=== PATIENT | female | born 1990 | race Caucasian/White ===

== ENCOUNTER 2019-02-07 13:52 | Outpatient (CLI) | payer BC ==
[~2019-02-07] VITALS: Ht 170.2 cm; Wt 63.0 kg
[~2019-02-07 13:52] MED LIST: ACHYD1T PO; CIPR500T78 PO; DCS100C PO; HYDR-3720 PO; HYDR1TAB75 PO; IBP800T PO; Ibuprofen PO; METR500T PO; MULT-608 PO; PREN1TAB39 PO
[2019-02-07 14:00] VITALS: BP 112/68
[2019-02-07] MEDS ORDERED: MULT-141 PO (14:03)
[2019-02-07 14:31] LABS: BASOPHILS % (AUTO) 1 % (0-10); EOSINOPHILS # (AUTO) 0.1 10^3/uL (0.0-0.3); EOSINOPHILS % (AUTO) 3 % (0-10); HEMATOCRIT 35 % (35-52); HEMOGLOBIN 11.6 G/DL (11.5-16.0); LYMPHOCYTES # (AUTO) 1.8 X 10^3 (1.0-4.0); LYMPHOCYTES % (AUTO) 35 % (12-44); MEAN CORPUSCULAR HEMOGLOBIN 29 PG (25-34); MEAN CORPUSCULAR HGB CONC 33 G/DL (32-36); MEAN CORPUSCULAR VOLUME 87 FL (80-99); MEAN PLATELET VOLUME 10.1 FL (7.4-10.4); MONOCYTES # (AUTO) 0.4 X 10^3 (0.0-1.0); MONOCYTES % (AUTO) 7 % (0-12); NEUTROPHILS # (AUTO) 2.8 X 10^3 (1.8-7.8); NEUTROPHILS % (AUTO) 54 % (42-75); PLATELET COUNT 306 10^3/uL (130-400); RED CELL DISTRIBUTION WIDTH 14.9 % (10.0-14.5); WHITE BLOOD COUNT 5.1 10^3/uL (4.3-11.0)
== END 2019-02-07 14:17 | disposition home or self-care (01) ==
LOC: PREOP 13:52
PROVIDERS: ATTEND Obstetrics & Gynecology
DX: Z01.812 Encounter for preprocedural laboratory examination (principal); Z11.2 Encounter for screening for other bacterial diseases; N81.4 Uterovaginal prolapse, unspecified; N92.0 Excessive and frequent menstruation with regular cycle; D64.9 Anemia, unspecified
CPT/HCPCS: 36415; 85025; 86850; 86900; 86901; 87081

== ENCOUNTER 2019-02-14 10:56 | Day surgery (SDC) | payer BC ==
[~2019-02-14] VITALS: Ht 170.2 cm; Wt 63.0 kg
--- NOTE | 2019-02-14 08:18 | Progress Note-Pre Operative ---
Pre-Operative Progress Note H&P Reviewed The H&P was reviewed, patient examined and no changes noted. Date Seen by Provider: Feb 14, 2019 Time Seen by Provider: 12:34 Date H&P Reviewed: Feb 14, 2019 Time H&P Reviewed: 12:34 Pre-Operative Diagnosis: DUB/Menorrhagia YANDY DEAN MD Feb 14, 2019 08:18
--- NOTE | 2019-02-14 08:19 | Progress Note-Post Operative ---
Post-Operative Progess Note Surgeon (s)/Atm Manager (s) Surgeon YANDY DEAN MD Atm Manager: Juve Pre-Operative Diagnosis DUB/Menorrhagia Post-Operative Diagnosis same with pelvic adhesions and with pathology pending Procedure & Operative Findings Date of Procedure 02/14/19 Procedure Performed/Findings TLH with Bilat Salpingectomy and adhesiolysis Anesthesia Type GETA Estimated Blood Loss Estimated blood loss (mL): Minimal Specimens/Packing Specimens Removed Uterus and tubes YANDY DEAN MD Feb 14, 2019 08:19
--- NOTE | 2019-02-14 08:23 | Discharge Instructions ---
Discharge Instructions Patient Instructions Patient Instructions: as directed Return to The Hospital For: as directed Activity & Diet Discharge Diet: No Restrictions Activity as Tolerated: No Orders-Post D/C & Referrals Follow Up Appt: RTC on Saturday February 16, 2019 at 9:30 AM for staple removal Call to make follow up appt. for patient in 4 weeks. Activity: Rest for 24 hours, than as tolerated. Wound Care: May remove Band-Aid tomorrow. Replace as desired. Keep incisions clean and dry. Wash daily with soap and water. Please call in RX to patient pharmacy. Diet: As tolerated-Clear Liquids only if nauseated. shower or tub bathe as desired. No driving for 24 hours, no alcoholic beverages for 24 hours, and nothing per vagina (no tampons, douching, or intercourse) for 8 weeks. Patient to return to the clinic as soon as possible for: Temperature greater than 101F, Severe Pain, Foul discharge from incision or vagina, Excessive Bleeding (more than a period). YANDY DEAN MD Feb 14, 2019 08:23
[2019-02-14 10:55] VITALS: BP 111/75
[~2019-02-14 10:56] MED LIST changes: +DOCU-143 PO; +IBUP-1780 PO; +MULT-141 PO; +OXYC1TAB87 PO
--- OUTSIDE RECORDS SUMMARY | 2019-02-14 10:58 | XMS REPORT | Continuity of Care Document ---
Author Organization Unknown Address Unknown Allergies Active Description Code Type Severity Reaction Onset Reported/Identified Relationship to Patient Clinical Status Yes No Known Drug Allergies [id number] Drug Allergy Unknown N/A 10/10/2009 Medications There is no data. Problems Date Dx Coded Attending Type Code Diagnosis Diagnosed By 02/09/2019 YANDY DEAN MD, Ot D64.9 ANEMIA, UNSPECIFIED 02/09/2019 YANDY DEAN MD, Ot N81.4 UTEROVAGINAL PROLAPSE, UNSPECIFIED 02/09/2019 YANDY DEAN MD Ot N92.0 EXCESSIVE AND FREQUENT MENSTRUATION WITH 02/09/2019 YANDY DEAN MD Ot Z01.812 ENCOUNTER FOR PREPROCEDURAL LABORATORY E 02/09/2019 YANDY DEAN MD Ot Z11.2 ENCOUNTER FOR SCREENING FOR OTHER BACTER 02/13/2019 YANDY DEAN MD, Ot D64.9 ANEMIA, UNSPECIFIED 02/13/2019 YANDY DEAN MD, Ot N81.4 UTEROVAGINAL PROLAPSE, UNSPECIFIED 02/13/2019 YANDY DEAN MD Ot N92.0 EXCESSIVE AND FREQUENT MENSTRUATION WITH 02/13/2019 YANDY DEAN MD Ot Z01.812 ENCOUNTER FOR PREPROCEDURAL LABORATORY E 02/13/2019 YANDY DEAN MD Ot Z11.2 ENCOUNTER FOR SCREENING FOR OTHER BACTER Procedures There is no data. Results Test Result Range Methicillin resistant Staphylococcus aureus (MRSA) screening culture - 14:11 Methicillin resistant Staphylococcus aureus (MRSA) screening culture NEG NRG Complete blood count (CBC) with automated white blood cell (WBC) differential - 02/07/19 14:14 Blood leukocytes automated count (number/volume) 5.1 10*3/uL 4.3-11.0 Blood erythrocytes automated count (number/volume) 4.03 10*6/uL 4.35-5.85 Venous blood hemoglobin measurement (mass/volume) 11.6 g/dL 11.5-16.0 Blood hematocrit (volume fraction) 35 % 35-52 Automated erythrocyte mean corpuscular volume 87 [foz_us] 80-99 Automated erythrocyte mean corpuscular hemoglobin (mass per erythrocyte) 29 pg 25-34 Automated erythrocyte mean corpuscular hemoglobin concentration measurement ( mass/volume) 33 g/dL 32-36 Automated erythrocyte distribution width ratio 14.9 % 10.0-14.5 Automated blood platelet count (count/volume) 306 10*3/uL 130-400 Automated blood platelet mean volume measurement 10.1 [foz_us] 7.4-10.4 Automated blood neutrophils/100 leukocytes 54 % 42-75 Automated blood lymphocytes/100 leukocytes 35 % 12-44 Blood monocytes/100 leukocytes 7 % 0-12 Automated blood eosinophils/100 leukocytes 3 % 0-10 Automated blood basophils/100 leukocytes 1 % 0-10 Blood neutrophils automated count (number/volume) 2.8 10*3 1.8-7.8 Blood lymphocytes automated count (number/volume) 1.8 10*3 1.0-4.0 Blood monocytes automated count (number/volume) 0.4 10*3 0.0-1.0 Automated eosinophil count 0.1 10*3/uL 0.0-0.3 Automated blood basophil count (count/volume) 0.0 10*3/uL 0.0-0.1 Blood type T Indirect antibody screen panel - 02/07/19 14:14 ABO+Rh group OP NRG Blood group antibody screen NEGATIVE NRG Encounters ACCT No. Visit Date/Time Discharge Status Pt. Type Provider Facility Loc./Unit Complaint [id number] 02/07/2019 13:52:00 02/07/2019 14:17:00 DIS Outpatient JERMAINE SAVAGE, YANDY [facility] PREOP ROBOTIC HYSTERECTOMY WITH BILATERAL SALPINGECTOMY [id number] 07/07/2014 12:30:00 07/07/2014 22:55:00 DIS Outpatient [id number] 07/04/2014 08:23:00 07/04/2014 23:59:59 CLS Outpatient [id number] 02/14/2019 10:56:00 ACT Outpatient JERMAINE SAVAGE, YANDY [facility] DYFUNCTIONAL UTERINE BLEEDING
[2019-02-14] MEDS ORDERED: ceFAZolin INJECTION 1,000 MG in WATER (STERILE) FOR INJECTION 10 ML IV ONE (11:15)
[2019-02-14] MEDS ORDERED: proPOfol 200 MG/20 ML (DIPRIVAN) VIAL IV ONE (11:23)
[2019-02-14] MEDS ORDERED: ONDANSETRON 4 MG/2 ML (SDV) Z0FRAN ONE (11:23)
[2019-02-14] MEDS ORDERED: ROCURONIUM 10 MG/ML 5 ML SYRINGE IV ONE (11:23)
[2019-02-14] MEDS ORDERED: MIDAZOLAM 2 MG/2 ML (VERSED) VIAL ONE (11:23)
[2019-02-14] MEDS ORDERED: SEVOFLURANE (ULTANE) 15 ML INHAL SOLN ONE ×2 (11:23→13:54)
[2019-02-14] MEDS ORDERED: LIDOCAINE PF 2% 5 ML (XYLOCAINE) VIAL ONE (11:23)
[2019-02-14] MEDS ORDERED: DEXAMETHASONE 10 MG/ML (DECADRON) 1 ML VIAL ONE (11:23)
[2019-02-14] MEDS ORDERED: fentaNYL INJECTION 100 MCG/2 ML AMP ONE (11:23)
[2019-02-14] MEDS ORDERED: CATHETER FLUSH 10 ML SYR IV PRN (11:30)
[2019-02-14] MEDS: LACTATED RINGERS 1,000 ML IV PRN ×2 (11:45→13:25)
[2019-02-14] MEDS ORDERED: BUP/EPI 0.5% 1:200,000 (SENSORCAINE) 30 ML VIAL ONE (11:49)
[2019-02-14] MEDS ORDERED: GLYCOPYRROLATE 0.2 MG/ML (ROBINUL) 2 ML VIAL ONE (13:54)
[2019-02-14] MEDS ORDERED: LACTATED RINGERS 1,000 ML IV ONE (13:54)
[2019-02-14] MEDS ORDERED: NEOSTIGMINE 1 MG/ML 5 ML SYRINGE ONE (13:54)
[2019-02-14] MEDS ORDERED: ONDANSETRON 4 MG/2 ML (SDV) Z0FRAN IVP PRN ×2 (14:00→14:15)
[2019-02-14] MEDS ORDERED: KETOROLAC 30 MG/ML VIAL ONE (14:00)
[2019-02-14] MEDS: KETOROLAC 30 MG/ML VIAL IVP SCH ×2 (14:00→20:03)
[2019-02-14] MEDS ORDERED: MEPERIDINE (DEMEROL) INJ 100 MG/ML IM PRN (14:00)
[2019-02-14] MEDS ORDERED: PROMETHAZINE INJ 25 MG/ML (PHENERGAN) AMP IM PRN (14:00)
[2019-02-14] MEDS ORDERED: WATER (STERILE) FOR INJ 10 ML BTL INJ ONE (14:00)
[2019-02-14] MEDS ORDERED: HYDROmorphone 2 MG/ML VIAL (DILAUDID) IV ONE (14:15)
[2019-02-14] MEDS ORDERED: morphine INJ 10 MG/ML 1ML (SYR OR VIAL) IVP ONE (14:15)
[2019-02-14] MEDS ORDERED: morphine INJ 10 MG/ML 1ML (SYR OR VIAL) ONE (14:18)
--- NOTE | 2019-02-14 15:00 | NUR ---
Pt transferred to room 306 via bed with PACU staff @ side. pt resting with eyes closed. opens eyes when called by name. report received from Angelique Valdez RN. care assumed of pt.
[2019-02-14 15:07] VITALS: BP 117/60
--- NOTE | 2019-02-14 15:07 | NUR ---
initial shift assessment completed. HRR. lungs cta bilat with unlabored respirations noted. BS +x4. abd lapsites x3 noted, D/I. holt catheter to DD with clear, yellow urine noted. v-pad in place. SCD's to LE's. IV site patent to Rt.FA. IV tubing changed. call light within reach. and sister @ side.
[2019-02-14] MEDS: D5 LR IV SOLUTION 1,000 ML IV SCH ×2 (16:02→21:10)
--- NOTE | 2019-02-14 17:34 | NUR ---
called to check on pt. update given on status. no new orders received .
--- NOTE | 2019-02-14 18:19 | NUR ---
was called r/t decreased urine output. order received to increased IVF's to 250cc/hr x4 hours.
--- NOTE | 2019-02-14 18:32 | NUR ---
RT notified of IS order.
--- NOTE | 2019-02-14 19:30 | NUR ---
report given to next shift.
[2019-02-14 20:03] VITALS: BP 121/68
[2019-02-14] MEDS: oxyCODONE/APAP 5/325MG (PERCOCET 5) TABLET PO PRN ×2 (20:19→21:11)
[2019-02-15 00:27] VITALS: BP 94/48
--- NOTE | 2019-02-15 01:53 | OPERATIVE REPORT ---
DATE OF SERVICE: 02/14/2019 PREOPERATIVE DIAGNOSES: Dysfunctional uterine bleeding, menorrhagia, not controlled with hormones. POSTOPERATIVE DIAGNOSES: Dysfunctional uterine bleeding, menorrhagia, not controlled with hormones with likely endometriosis as well as cervical polyp. OPERATIVE PROCEDURE: Total laparoscopic hysterectomy with left salpingectomy. OPERATIVE DESCRIPTION: With the patient in the supine position under satisfactory general anesthesia, she was repositioned in the dorsal lithotomy position in the [facility] and prepped and draped in usual fashion for abdominal and vaginal surgery. Urinary bladder was drained via Resendiz catheter to dependent drainage. Weighted speculum placed in posterior fornix of vagina, cervix exposed and grasped anteriorly with single tooth tenaculum. Uterus was sounded to 9.5 cm with uterine sound. The cervix was then serially dilated with Fenrando dilators to accommodate a Christine II manipulator, which was placed with a 6 mm x 8 cm uterine probe and a 30 mm colpotomy ring. It was noted that there was a 6 mm polyp prolapsed through the cervical os. Sutures of #1 Vicryl were placed at 3 and 9 o'clock position of the cervix to affix the uterus to the manipulator. Bulb was filled with 8 mL of water. The tenaculum and speculum were removed. The patient brought in low dorsal lithotomy position. A 12 mm incision was made 3 cm superior to the umbilicus. Veress needle was placed through that incision into the abdominal cavity and correct placement confirmed with water drop test. The abdomen was insufflated to 2.4 liters of carbon dioxide and the Veress needle was removed and a 12 mm Optiview laparoscopic port placed under direct vision. The abdominal wall was transilluminated and 8 mm ports were placed 8 cm lateral to the umbilicus through incisions of those sizes. All the incision sites were infiltrated with 0.25% Marcaine with epinephrine prior to incision and port placement. The patient placed in Trendelenburg allowing the bowel to spill out of the pelvis. The da Christoph column was advanced on the patient and docked and operative instruments were placed. She was then prepared for surgery. I retired to the da Christoph console. At the console using the vessel sealer on the right and a bipolar fenestrated grasper on the left, the pelvis was examined. The right tube and ovary were surgically absent. The left tube showed evidence of endometriosis and some degree of what appeared to be hydrosalpinx. The left ovary was relatively normal in appearance. There was some endometriosis implants on the back of the uterus. There was mottling of the uterus consistent with adenomyosis. Both ureters were seemed to peristalse freely and were well away from any areas of dissection. There were some adhesions of the sigmoid to the left pelvic brim. These were taken down to allow complete access to the IP ligament. The scope was rotated. The cecum was identified. It was a normal cecum, but there were some adhesions to the terminus of the pericolic gutter. The appendix was surgically absent. The scope was brought back to the pelvis. Using the vessel sealer on the right, the right round ligament and broad ligament were clamped, cauterized and divided over to the side of the uterus that was continued down the side of the uterus onto the cardinal ligament and the same procedure on the left starting by elevating the left fallopian tube and clamping and cauterizing the mesosalpinx across to the utero-ovarian pedicle, which was clamped, cauterized and divided as well across onto the round ligament, across the broad ligament and eventually down on the cardinal ligament on the left. The vessel sealer was replaced with a monopolar shear and then the anterior lower uterine segment peritoneum was divided allowing the bladder to be dissected down off the lower uterine segment exposing the anterior vaginal wall over the colpotomy ring. Colpotomy incision was started at 12 o'clock position and continued circumferentially until the entire colpotomy ring was exposed. The uterus was free. At this point, it was extracted through the vagina with the left fallopian tube still attached. The vaginal cuff was now closed with two sutures of V-Loc barbed suture starting first on the right angle and continuing almost to the left angle and then starting from the left ovary, it was suspended to the pedicle of the left round ligament to support the ovary out of the deep pelvis and then bring the suture down across the cut base of the broad ligament and to the left angle where the uterine vessels were ligated as was done on the right side to ensure hemostasis. The balance of the cuff was closed and then the suture was used to reperitonealize the vaginal cuff with the bladder peritoneum. The needles were removed from the pelvis. The pelvis was examined for hemostasis, which was complete. The monopolar shear was replaced into the right port and the adhesions of the cecum to the terminus of the right pericolic gutter were freed with all normal anatomy restored and with no bleeding and no abnormal pathology. The procedure was terminated. Sponge and needle counts were correct at this point. The patient's ports were removed under direct vision. No bleeding was noted from the port sites. The abdomen was evacuated of insufflating gas in the process of removing the ports. The skin incisions were stapled after first closing the fascia at the umbilical incision with [id number] suture of 2-0 Vicryl. Speculum was replaced in the vagina. The vaginal cuff was examined and found completely hemostatic and completely reapproximated. Sponge and needle counts correct. Estimated blood loss was minimal. The patient was uneventfully awakened now from her general anesthesia and transferred to recovery in stable condition. Job ID: [id number] DocumentID: [id number] Dictated Date: 02/14/2019 14:04:01 Promotional Representative Date: 02/15/2019 01:51:56 Dictated By: YANDY DEAN MD MTDD
[2019-02-15] MEDS: KETOROLAC 30 MG/ML VIAL IVP SCH (03:10)
[2019-02-15 05:50] VITALS: BP 107/68
--- NOTE | 2019-02-15 05:50 | NUR ---
Resendiz catheter and IV removed at time. Pt tolerated well. Pt up to bathroom with standby assist. Pt steady on feet. Fresh water given. Pain medication given per request.
[2019-02-15] MEDS: oxyCODONE/APAP 5/325MG (PERCOCET 5) TABLET PO PRN (05:58)
--- NOTE | 2019-02-15 07:00 | NUR ---
REPORT FROM CASSIUS ALEXANDER.
--- NOTE | 2019-02-15 07:55 | Progress Note-Standard ---
Standard Progress Note Progress Notes/Assess & Plan Date Seen by a Provider: Feb 15, 2019 Time Seen by a Provider: 07:54 Progress/Assessment & Plan This patient is without complaint. She is ambulating, voiding, tolerating oral intake well and has good pain control. Patient denies chest pain, denies shortness of breath, denies nausea vomiting, and denies headache. Vital Signs Date Time Temp Pulse Resp B/P (MAP) Pulse Ox O2 Delivery O2 Flow Rate FiO2 02/15/19 05:50 99.7 66 18 107/68 (81) 98 02/15/19 00:27 99.5 75 18 94/48 (63) 96 Room Air 02/14/19 20:23 Room Air 02/14/19 20:03 100.6 104 18 121/68 (85) 100 Room Air 02/14/19 15:07 98.7 71 18 117/60 (79) 100 Room Air 02/14/19 15:00 18 100 Room Air 02/14/19 14:50 18 100 Room Air 02/14/19 14:40 18 100 Room Air 02/14/19 14:30 18 100 OxyMask 6 02/14/19 14:20 20 100 OxyMask 6 02/14/19 14:10 18 100 OxyMask 6 02/14/19 14:07 18 100 OxyMask 6 02/14/19 10:55 99.1 68 16 111/75 (87) 100 Room Air I & O 02/15/19 07:00 Intake Total 1010 ml Output Total 280 ml Balance 730 ml Vital signs are stable. Patient is afebrile. The abdomen is benign. Extremities show no clubbing or cyanosis. There is no Homans sign. Assessment and plan postoperative day number 1 doing well. Plan is for discharge home with follow-up in clinic Final Diagnosis Dysfunctional uterine bleeding/menorrhagia YANDY DEAN MD Feb 15, 2019 07:55
[2019-02-15 09:00] VITALS: BP 116/62
[2019-02-15] MEDS ORDERED: DOCUSATE SODIUM 100 MG (COLACE) CAP PO SCH (09:00)
--- NOTE | 2019-02-15 09:00 | NUR ---
INITIAL ASSESSMENT COMPLETED, VSS, NO DISTRESS NOTED, SEE INTERVENTIONS FOR DETAILED ASSESSMENTS. D/C INSTRUCTIONS EXPLAINED, SIGNED, NO QUESTIONS NOTED, PT VERBALIZES UNDERSTANDING OF FOLLOW UP CARE AND INSTRUCTIONS. OPSITES REMOVED, BAND-AIDS APPLIED.
--- NOTE | 2019-02-15 10:16 | Anesthesia-General Post-Op ---
General Patient Condition Mental Status/LOC: Same as Preop Cardiovascular: Satisfactory Nausea/Vomiting: Absent Respiratory: Satisfactory Pain: Controlled Complications: Absent Post Op Complications Complications None Follow Up Care/Instructions Patient Instructions None needed. Anesthesia/Patient Condition Patient Condition Patient is doing well, no complaints, stable vital signs, no apparent adverse anesthesia problems. No complications reported per nursing. JAN EVANS CRNA Feb 15, 2019 10:16
--- NOTE | 2019-02-15 10:30 | NUR ---
PT UP TO BR, VOIDED 100ML WITHOUT DIFFICULTY.
--- NOTE | 2019-02-15 10:35 | NUR ---
PRESCRIPTIONS CALLED TO PTS PHARMACY
--- NOTE | 2019-02-15 10:45 | NUR ---
PT DISCHARGED TO HOME, AMBULATED TO PRIVATE CAR WITH S/O AND STAFF AT SIDE, NO DISTRESS NOTED.
[2019-02-15] MEDS ORDERED: IBUPROFEN 800 MG (MOTRIN) TAB PO SCH (14:00)
== END 2019-02-15 10:45 | disposition home or self-care (01) ==
LOC: SDC 10:56 → WS 15:00 → SDC 02-15 10:45
PROVIDERS: ATTEND Obstetrics & Gynecology
DX: N84.1 Polyp of cervix uteri (principal); N72 Inflammatory disease of cervix uteri; N92.0 Excessive and frequent menstruation with regular cycle; N81.89 Other female genital prolapse
CPT/HCPCS: 36415; 84703; 86850; 86900; 86901; 88307; 94664

== ENCOUNTER 2019-03-02 13:25 | Emergency (ER) | payer BC ==
[~2019-03-02] VITALS: Ht 167.6 cm; Wt 63.5 kg
[2019-03-02 14:13] LABS: BILIRUBIN,URINE NEGATIVE (NEGATIVE); CLARITY,URINE SLIGHTLY CLOUDY; COLOR,URINE YELLOW; GLUCOSE, URINE (UA) NEGATIVE (NEGATIVE); KETONES,URINE NEGATIVE (NEGATIVE); LEUKOCYTE ESTERASE ,URINE 1+ (NEGATIVE); NITRITE,URINE NEGATIVE (NEGATIVE); PH,URINE 6 (5-9); PROTEIN,URINE NEGATIVE (NEGATIVE); UROBILINOGEN,URINE NORMAL (NORMAL)
[2019-03-02 14:19] LABS: BACTERIA,URINE TRACE /HPF; WBC,URINE RARE /HPF
[2019-03-02 14:26] LABS: BASOPHILS % (AUTO) 1 % (0-10); EOSINOPHILS # (AUTO) 0.2 10^3/uL (0.0-0.3); EOSINOPHILS % (AUTO) 2 % (0-10); HEMATOCRIT 36 % (35-52); LYMPHOCYTES # (AUTO) 2.2 X 10^3 (1.0-4.0); LYMPHOCYTES % (AUTO) 30 % (12-44); MEAN CORPUSCULAR HEMOGLOBIN 29 PG (25-34); MEAN CORPUSCULAR HGB CONC 33 G/DL (32-36); MEAN CORPUSCULAR VOLUME 87 FL (80-99); MEAN PLATELET VOLUME 9.9 FL (7.4-10.4); MONOCYTES # (AUTO) 0.7 X 10^3 (0.0-1.0); MONOCYTES % (AUTO) 10 % (0-12); NEUTROPHILS # (AUTO) 4.3 X 10^3 (1.8-7.8); NEUTROPHILS % (AUTO) 58 % (42-75); PLATELET COUNT 372 10^3/uL (130-400); RED CELL DISTRIBUTION WIDTH 15.1 % (10.0-14.5); WHITE BLOOD COUNT 7.5 10^3/uL (4.3-11.0)
--- NOTE | 2019-03-02 14:28 | ED Abdominal Pain ---
General Chief Complaint: Abdominal/GI Problems Stated Complaint: ABD PAIN Nursing Triage Note: PT AMB TO TRIAGE WITH COMPLAINT OF ABD PAIN. PT STATES PAIN STARTED THURSDAY. PT STATES SHE HAD A HYSTERECTOMY 2 WEEKS AGO. STATES SHE HAS HAD PAIN SHOOT UP INTO HER RIB CAGE AND DOWN LEGS. Sepsis Screen: No Definite Risk Source of Information: Patient Exam Limitations: No Limitations History of Present Illness Date Seen by Provider: Mar 02, 2019 Time Seen by Provider: 14:26 Initial Comments To ER with reports of abdominal pain worse on the left side with associated intermittent nausea and intermittent worsening pain. She had a total laparoscopic assisted hysterectomy with left salpingectomy 2 weeks ago done here by Dr. 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 She denies any fevers above 100.5, does have general malaise. Timing/Duration: Intermittent Severity/Quality: Moderate Location: Suprapubic Radiation: No Radiation, LLQ Activities at Onset: None Associated Symptoms: Fever/Chills (low-grade fever of 99 she states), Nausea/ Vomiting (nausea intermittently none current) Allergies and Home Medications Allergies Coded Allergies: No Known Drug Allergies (Verified , 10/10/09) Home Medications Docusate Sodium 100 Mg Capsule, 100 MG PO BID Prescribed by: YANDY CHILDRESS on 02/14/19820 Ibuprofen 800 Mg Tablet, 800 MG PO Q6H PRN for PAIN Prescribed by: YANDY CHILDRESS on 02/14/19820 Multivit with Calcium,Iron,Min 1 Each Tablet, 1 EACH PO DAILY, (Reported) Oxycodone HCl/Acetaminophen 1 Each Tablet, 1 TAB PO Q4H Prescribed by: YANDY CHILDRESS on 02/14/19820 Patient Home Medication List Home Medication List Reviewed: Yes Review of Systems Review of Systems Constitutional: see HPI, chills, malaise EENTM: No Symptoms Reported Respiratory: No Symptoms Reported Cardiovascular: No Symptoms Reported Gastrointestinal: See HPI, Abdominal Pain, Nausea Genitourinary: No Symptoms Reported Musculoskeletal: no symptoms reported Skin: no symptoms reported Psychiatric/Neurological: No Symptoms Reported Endocrine: No Symptoms Reported Hematologic/Lymphatic: No Symptoms Reported Past Kokepyu-Wodlqt-Ytdrjt Hx Patient Social History Alcohol Use: Occasionally Uses Recreational Drug Use: No Smoking Status: Never a Smoker 2nd Hand Smoke Exposure: No Recent Foreign Travel: No Contact w/Someone Who Travel: No Recent Infectious Disease Expo: No Recent Hopitalizations: No Immunizations Up To Date Tetanus Booster (TDap): Unknown PED Vaccines UTD: Yes Seasonal Allergies Seasonal Allergies: No Past Medical History Surgeries: Yes (DXLS x2) Appendectomy, Hysterectomy, Oophorectomy Respiratory: No Cardiac: No Neurological: No 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 0.0oz. 63.642318ma; 21.8 BMI Method:Stated General Appearance: WD/WN, no apparent distress HEENT: PERRL/EOMI, normal ENT inspection Respiratory: no respiratory distress, no accessory muscle use Gastrointestinal: normal bowel sounds, soft, tenderness (left lower quadrant), other (incisions are clean dry and intact without surrounding induration and erythema or drainage) Extremities: normal range of motion, non-tender Neurologic/Psychiatric: alert, normal mood/affect, oriented x 3 Skin: normal color, warm/dry Progress/Results/Core Measures Results/Orders Lab Results Laboratory Tests Test 03/02/19 14:06 03/02/19 14:15 Range/Units Urine Color YELLOW Urine Clarity SLIGHTLY CLOUDY Urine pH 6 5-9 Urine Specific [place] 1.020 1.016-1.022 Urine Protein NEGATIVE NEGATIVE Urine Glucose (UA) NEGATIVE NEGATIVE Urine Ketones NEGATIVE NEGATIVE Urine Nitrite NEGATIVE NEGATIVE Urine Bilirubin NEGATIVE NEGATIVE Urine Urobilinogen NORMAL NORMAL MG/DL Urine Leukocyte Esterase 1+ H NEGATIVE Urine RBC (Auto) NEGATIVE NEGATIVE Urine RBC NONE /HPF Urine WBC RARE /HPF Urine Squamous Epithelial Cells 10-25 H /HPF Urine Crystals NONE /LPF Urine Bacteria TRACE /HPF Urine Casts NONE /LPF Urine Mucus NEGATIVE /LPF Urine Culture Indicated NO White Blood Count 7.5 4.3-11.0 10^3/uL Red Blood Count 4.18 L 4.35-5.85 10^6/uL Hemoglobin 12.0 11.5-16.0 G/DL Hematocrit 36 35-52 % Mean Corpuscular Volume 87 80-99 FL Mean Corpuscular Hemoglobin 29 25-34 PG Mean Corpuscular Hemoglobin Concent 33 32-36 G/DL Red Cell Distribution Width 15.1 H 10.0-14.5 % Platelet Count 372 130-400 10^3/uL Mean Platelet Volume 9.9 7.4-10.4 FL Neutrophils (%) (Auto) 58 42-75 % Lymphocytes (%) (Auto) 30 12-44 % Monocytes (%) (Auto) 10 0-12 % Eosinophils (%) (Auto) 2 0-10 % Basophils (%) (Auto) 1 0-10 % Neutrophils # (Auto) 4.3 1.8-7.8 X 10^3 Lymphocytes # (Auto) 2.2 1.0-4.0 X 10^3 Monocytes # (Auto) 0.7 0.0-1.0 X 10^3 Eosinophils # (Auto) 0.2 0.0-0.3 10^3/uL Basophils # (Auto) 0.0 0.0-0.1 10^3/uL Sodium Level 142 135-145 MMOL/L Potassium Level 3.9 3.6-5.0 MMOL/L Chloride Level 107 98-107 MMOL/L Carbon Dioxide Level 25 21-32 MMOL/L Anion Gap 10 5-14 MMOL/L Blood Urea Nitrogen 9 7-18 MG/DL Creatinine 0.69 0.60-1.30 MG/DL Estimat Glomerular Filtration Rate > 60 BUN/Creatinine Ratio 13 Glucose Level 79 70-105 MG/DL Calcium Level 9.7 8.5-10.1 MG/DL Corrected Calcium 8.5-10.1 MG/DL Total Bilirubin 0.5 0.1-1.0 MG/DL Aspartate Amino Transf (AST/SGOT) 16 5-34 U/L Alanine Aminotransferase (ALT/SGPT) 18 0-55 U/L Alkaline Phosphatase 47 40-136 U/L Total Protein 7.5 6.4-8.2 GM/DL Albumin 4.6 H 3.2-4.5 GM/DL My Orders Orders - PATRICIA ANNE SAP PORT[employer] CONSULTANT Cbc With Automated Diff (03/02/19 13:52) Comprehensive Metabolic Panel (03/02/19 13:52) Ua Culture If Indicated (03/02/19 13:52) Ed Iv/Invasive Line Start (03/02/19 13:52) Ct Abdomen/Pelvis W (03/02/19 14:17) Iohexol Injection (Omnipaque 350 Mg/Ml 1 (03/02/19 14:30) Received Contrast (Hold Metformin- Contr (03/02/19 14:30) Medications Given in ED Current Medications Medications Dose Ordered Sig/Elma Route Start Time Stop Time Status Last Admin Dose Admin Iohexol 100 ml ONCE ONCE IV 03/02/19 14:30 03/02/19 14:31 DC 03/02/19 15:21 100 ML Vital Signs/I&O 03/02/19 13:31 Temp 97.7 Pulse 74 Resp 20 B/P (MAP) 117/74 (88) Pulse Ox 98 O2 Delivery Room Air Blood Pressure Mean: 88 Diagnostic Imaging Diagonstic Imaging: CT Comments NAME: LEXY FRANCIS [employer] REC#: [id number] PT STATUS: REG ER : 1990 PHYSICIAN: PATRICIA ANNE SAP PORTAL CONSULTANT ADMIT DATE: 03/02/19/ER Draft Date of Exam:03/02/19 CT ABDOMEN/PELVIS W PROCEDURE: CT abdomen and pelvis with contrast. TECHNIQUE: Multiple contiguous axial images were obtained through the abdomen and pelvis after administration of intravenous contrast. Auto Exposure Controls were utilized during the CT exam to meet ALARA standards for radiation dose reduction. INDICATION: Status post hysterectomy two weeks ago. Patient complains of abdominal pain. No prior studies are available for comparison. The lung bases are clear. The liver contains tiny low density in the right lobe peripherally, too small to characterize but most likely a cyst. Gallbladder is unremarkable. No biliary ductal dilatation is seen. Pancreas and spleen are unremarkable. No adrenal mass is identified. Kidneys are unremarkable. Aorta is nonaneurysmal. Small and large bowel loops are normal caliber. No obstruction. Imaging through the pelvis demonstrates bladder to be unremarkable. Uterus is surgically absent. There is a small amount of free fluid in the pelvis. No well-formed fluid collection or abscess is seen. There is a cyst in the left adnexa measuring 2.2 cm and likely ovarian. IMPRESSION: 1. Status post hysterectomy. There is a small amount of free fluid in the pelvis. No well-formed fluid collection or abscess is seen. There is no bowel obstruction. No acute features detected. 2. Small left adnexal cyst. Dictated on workstation # [id number] Dict: 03/02/19 1535 Trans: 03/02/19 1545 [facility] [id number] Interpreted by: CARLITO BLEVINS MD Electronically signed by: Departure Impression Primary Impression: Postoperative pain Disposition: HOME, SELF-CARE Condition: Stable Departure-Patient Inst. Decision time for Depature: 16:05 Referrals: JOANNA VELAZCO (PCP/Family) Primary Care Physician Patient Instructions: Postoperative Pain (DC) Add. Discharge Instructions: 1. Return to ER for any concerns 2. Follow-up with your doctor next week 3. All discharge instructions reviewed with patient and/or family. Voiced understanding. Copy Copies To 1: YANDY DEAN MD, PETER J APRN Mar 02, 2019 14:28
[2019-03-02] MEDS ORDERED: IOHEXOL 350 MG/ML 100 ML (OMNIPAQUE 350) VIAL IV ONE (14:30)
[2019-03-02] MEDS ORDERED: HOLD METFORMIN - RECEIVED CONTRAST 20 ML VIAL IV SCH (14:30)
--- OUTSIDE RECORDS SUMMARY | 2019-03-02 14:39 | XMS REPORT | Continuity of Care Document ---
Author Organization Unknown Address Unknown Allergies Active Description Code Type Severity Reaction Onset Reported/Identified Relationship to Patient Clinical Status Yes No Known Drug Allergies [id number] Drug Allergy Unknown N/A 10/10/2009 Medications There is no data. Problems Date Dx Coded Attending Type Code Diagnosis Diagnosed By 02/07/2019 YANDY DEAN MD, Ot D64.9 ANEMIA, UNSPECIFIED 02/07/2019 YANDY DEAN MD, Ot N81.4 UTEROVAGINAL PROLAPSE, UNSPECIFIED 02/07/2019 YANDY DEAN MD Ot N92.0 EXCESSIVE AND FREQUENT MENSTRUATION WITH 02/07/2019 YANDY DEAN MD Ot Z01.812 ENCOUNTER FOR PREPROCEDURAL LABORATORY E 02/07/2019 YANDY DEAN MD Ot Z11.2 ENCOUNTER FOR SCREENING FOR OTHER BACTER 02/09/2019 YANDY DEAN MD, Ot D64.9 ANEMIA, UNSPECIFIED 02/09/2019 YANDY DEAN MD Ot N81.4 UTEROVAGINAL PROLAPSE, UNSPECIFIED 02/09/2019 YANDY [...] FOR PREPROCEDURAL LABORATORY E 02/13/2019 YANDY DEAN MD, Ot Z11.2 ENCOUNTER FOR SCREENING FOR OTHER BACTER 02/17/2019 YANDY DEAN MD, Ot N72 INFLAMMATORY DISEASE OF CERVIX UTERI 02/17/2019 YANDY DEAN MD, Ot N81.89 OTHER FEMALE GENITAL PROLAPSE 02/17/2019 YANDY DEAN MD, Ot N84.1 POLYP OF CERVIX UTERI 02/17/2019 YANDY DEAN MD, Ot N92.0 EXCESSIVE AND FREQUENT MENSTRUATION WITH Procedures There is no data. Results Test [...] NRG Blood group antibody screen NEGATIVE NRG Urine beta human chorionic gonadotropin (hCG) measurement - 02/14/19 11:05 Urine beta human chorionic gonadotropin (hCG) measurement NEGATIVE NEGATIVE Blood type T Indirect antibody screen panel - 02/14/19 11:35 ABO+Rh group OP NRG Transfusion band number [id number] NRG Blood group antibody screen NEGATIVE NRG Complete urinalysis with reflex to culture - 03/02/19 14:06 Urine color determination YELLOW NRG Urine clarity determination SLIGHTLY CLOUDY NRG Urine pH measurement by test strip 6 5-9 Specific gravity of urine by test strip 1.020 1.016- 1.022 Urine protein assay by test strip, semi-quantitative NEGATIVE NEGATIVE Urine glucose detection by automated test strip NEGATIVE NEGATIVE Erythrocytes detection in urine sediment by light microscopy NEGATIVE NEGATIVE Urine ketones detection by automated test strip NEGATIVE NEGATIVE Urine nitrite detection by test strip NEGATIVE NEGATIVE Urine total bilirubin detection by test strip NEGATIVE NEGATIVE Urine urobilinogen measurement by automated test strip (mass/volume) NORMAL NORMAL Urine leukocyte esterase detection by dipstick 1+ NEGATIVE Automated urine sediment erythrocyte count by microscopy (number/high power field) NONE NRG Automated urine sediment leukocyte count by microscopy (number/high power field ) RARE NRG Bacteria detection in urine sediment by light microscopy TRACE NRG Squamous epithelial cells detection in urine sediment by light microscopy 10-25 NRG Crystals detection in urine sediment by light microscopy NONE NRG Casts detection in urine sediment by light microscopy NONE NRG Mucus detection in urine sediment by light microscopy NEGATIVE NRG Complete urinalysis with reflex to culture NO NRG Complete blood count (CBC) with automated white blood cell (WBC) differential - 03/02/19 14:15 Blood leukocytes automated count (number/volume) 7.5 10*3/uL 4.3-11.0 Blood erythrocytes automated count (number/volume) 4.18 10*6/uL 4.35-5.85 Venous blood hemoglobin measurement (mass/volume) 12.0 g/dL 11.5-16.0 Blood hematocrit (volume fraction) 36 % 35-52 Automated erythrocyte mean corpuscular volume 87 [foz_us] 80-99 Automated erythrocyte mean corpuscular hemoglobin (mass per erythrocyte) 29 pg 25-34 Automated erythrocyte mean corpuscular hemoglobin concentration measurement ( mass/volume) 33 g/dL 32-36 Automated erythrocyte distribution width ratio 15.1 % 10.0-14.5 Automated blood platelet count (count/volume) 372 10*3/uL 130-400 Automated blood platelet mean volume measurement 9.9 [foz_us] 7.4-10.4 Automated blood neutrophils/100 leukocytes 58 % 42-75 Automated blood lymphocytes/100 leukocytes 30 % 12-44 Blood monocytes/100 leukocytes 10 % 0-12 Automated blood eosinophils/100 leukocytes 2 % 0-10 Automated blood basophils/100 leukocytes 1 % 0-10 Blood neutrophils automated count (number/volume) 4.3 10*3 1.8-7.8 Blood lymphocytes automated count (number/volume) 2.2 10*3 1.0-4.0 Blood monocytes automated count (number/volume) 0.7 10*3 0.0-1.0 Automated eosinophil count 0.2 10*3/uL 0.0-0.3 Automated blood basophil count (count/volume) 0.0 10*3/uL 0.0-0.1 Encounters ACCT No. Visit Date/Time Discharge Status Pt. Type Provider Facility Loc./Unit Complaint [id number] 02/14/2019 10:56:00 02/15/2019 10:45:00 DIS Outpatient YANDY DEAN MD [facility] DYFUNCTIONAL UTERINE BLEEDING [id number] 02/07/2019 13:52:00 02/07/2019 14:17:00 DIS Outpatient YANDY DEAN MD [facility] PREOP ROBOTIC HYSTERECTOMY WITH BILATERAL SALPINGECTOMY [id number] 07/07/2014 12:30:00 07/07/2014 22:55:00 DIS Outpatient [id number] 07/04/2014 08:23:00 07/04/2014 23:59:59 CLS Outpatient [id number] 03/02/2019 14:20:00 Document Registration
[2019-03-02 14:45] LABS: ALANINE AMINOTRANSFERASE 18 U/L (0-55); ALBUMIN 4.6 GM/DL (3.2-4.5); ALKALINE PHOSPHATASE 47 U/L (40-136); BILIRUBIN,TOTAL 0.5 MG/DL (0.1-1.0); BUN/CREATININE RATIO 13; CALCIUM 9.7 MG/DL (8.5-10.1); CARBON DIOXIDE 25 MMOL/L (21-32); CHLORIDE 107 MMOL/L (98-107); CREATININE SERUM 0.69 MG/DL (0.60-1.30); GFR ESTIMATED > 60; GLUCOSE 79 MG/DL (70-105); POTASSIUM 3.9 MMOL/L (3.6-5.0); SODIUM 142 MMOL/L (135-145); TOTAL PROTEIN 7.5 GM/DL (6.4-8.2)
--- NOTE | 2019-03-02 15:45 | Diagnostic Imaging Report ---
PROCEDURE: CT abdomen and pelvis with contrast. TECHNIQUE: Multiple contiguous axial images were obtained through the abdomen and pelvis after administration of intravenous contrast. Auto Exposure Controls were utilized during the CT exam to meet ALARA standards for radiation dose reduction. INDICATION: Status post hysterectomy two weeks ago. Patient complains of abdominal pain. No prior studies are available for comparison. The lung bases are clear. The liver contains tiny low density in the right lobe peripherally, too small to characterize but most likely a cyst. Gallbladder is unremarkable. No biliary ductal dilatation is seen. Pancreas and spleen are unremarkable. No adrenal mass is identified. Kidneys are unremarkable. Aorta is nonaneurysmal. Small and large bowel loops are normal caliber. No obstruction. Imaging through the pelvis demonstrates bladder to be unremarkable. Uterus is surgically absent. There is a small amount of free fluid in the pelvis. No well-formed fluid collection or abscess is seen. There is a cyst in the left adnexa measuring 2.2 cm and likely ovarian. IMPRESSION: 1. Status post hysterectomy. There is a small amount of free fluid in the pelvis. No well-formed fluid collection or abscess is seen. There is no bowel obstruction. No acute features detected. 2. Small left adnexal cyst. Dictated by: Dictated on workstation # [id number]
[2019-03-02 16:30] VITALS: BP 109/74
== END 2019-03-02 16:30 | disposition home or self-care (01) ==
LOC: EDUNIT# 13:25 → ER 13:26
DX: G89.18 Other acute postprocedural pain (principal); R10.32 Left lower quadrant pain; Z90.710 Acquired absence of both cervix and uterus; Z90.49 Acquired absence of other specified parts of digestive tract; Z98.890 Other specified postprocedural states
CPT/HCPCS: 36415; 74177; 80053; 81000; 85025